=== PATIENT | female | born 1970 | race Caucasian/White ===

== ENCOUNTER → 2023-07-02 | Outpatient (CLI) | payer OTHER ==
[2023-07-02 17:58] LABS: INR 0.8 (<1.2); Partial Thromboplastin Time 24.7 sec (22.0-30.0); Prothrombin Time 9.6 sec (10.0-12.5)
[2023-07-03 02:56] LABS: HCT 42.2 % (37.2-46.3); HGB 13.4 g/dL (12.0-15.0); MCH 28.4 pg (27.0-32.0); MCHC 31.8 g/dL (32.0-37.0); MCV 89.4 FL (80.0-97.0); Mean Platelet Volume 9.4 FL (9.5-12.2); NRBC Per 100 WBC 0 X 10*3/uL (0.00-0.01); Platelet Count 248 X 10*3/uL (140-440); RBC 4.72 X 10*6/uL (4.10-5.20); RDW 14.4 % (11.5-14.5); WBC 7.62 X 10*3/uL (4.50-10.00)
[2023-07-03 03:38] LABS: BUN/Creat Ratio 27.29 Ratio (12.00-20.00); Blood Urea Nitrogen 19.1 mg/dL (9.0-27.0); Chloride 105 mmol/L (96-109); Glucose 137 mg/dL (70-110); Potassium 4.4 mmol/L (3.5-5.5); Sodium 142 mmol/L (135-145)
[2023-07-03 03:39] LABS: ALT 23 U/L (8-44); AST 16 U/L (13-35); Alkaline Phosphatase 96 U/L (41-126); Calcium 9.4 mg/dL (8.7-10.3); Carbon Dioxide 25.1 mmol/L (21.6-31.8); Globulin 2.5 g/dL (1.6-3.3); Total Bilirubin 0.6 mg/dL (0.3-1.2); Total Protein 6.5 g/dL (6.2-8.2)
[2023-07-03 04:09] LABS: Appearance,Urine Clear (Clear); Bacteria,Urine None Seen (None Seen); Bilirubin,Urine Negative (Negative); Blood,Urine Large (Negative); Color,Urine Yellow (Yellow); Ketones,Urine Trace (Negative); Nitrite,Urine Negative (Negative); PH, Urine 5.5; Specific Gravity,Urine >1.035 (1.001-1.030); Urobilinogen,Urine 0.2
== END | disposition home or self-care (01) ==
LOC: LABPAT 16:30
PROVIDERS: ATTEND Orthopaedic Surgery
DX: Z01.812 Encounter for preprocedural laboratory examination (principal); M16.11 Unilateral primary osteoarthritis, right hip
CPT/HCPCS: 80053; 81001; 83036; 85027; 85610; 85730; 86850; 86900; 86901; 87070

== ENCOUNTER 2023-07-11 05:53 | Day surgery (SDC) | payer OTHER ==
[2023-07-04 10:28] VITALS: BMI 39.2
[~2023-07-11 05:53] MED LIST: DEXAMETHASONE SOD PHOSPHATE 4 MG/ML 1 ML VIAL IV ONE; LIDOCAINE 1% (10MG/ML) FOR IV START INTRADERMA PRN; ONDANSETRON 4 MG/2 ML VIAL IVP ONE
[2023-07-11] MEDS ORDERED: oxyCODONE ER 10 MG TAB.ER.12H PO PRN (06:00)
[2023-07-11] MEDS ORDERED: TRANEXAMIC 1,000 MG/100ML-NACL 1,000 MG in SALINE 1 100ML.BAG IVPB PRN (06:00)
[2023-07-11] MEDS ORDERED: DOCUSATE 100 MG CAP PO PRN (06:00)
[2023-07-11] MEDS ORDERED: TRANEXAMIC 1,000 MG/100ML-NACL 1,000 MG in SALINE 1 100ML.BAG IV PRN (06:00)
[2023-07-11] MEDS ORDERED: DEXAMETHASONE SOD PHOSPHATE 10 MG/ML 1 ML VIAL IV PRN (06:00)
[2023-07-11] MEDS ORDERED: ACETAMINOPHEN TAB 500 MG TAB PO PRN (06:00)
[2023-07-11] MEDS ORDERED: ONDANSETRON 4 MG/2 ML VIAL IVP PRN ×2 (06:00→10:37)
[2023-07-11] MEDS ORDERED: KETOROLAC 15 MG/ML 1 ML VIAL IVP PRN (06:00)
[2023-07-11] MEDS ORDERED: FAMOTIDINE 20 MG/2 ML VIAL IVP PRN (06:00)
[2023-07-11] MEDS: LACTATED RINGERS 1,000 ML IV SCH ×2 (06:15→15:03)
[2023-07-11 06:50] LABS: Glucose,Whole Blood 125 mg/dL (70-110)
[2023-07-11] MEDS ORDERED: MIDAZOLAM 2 MG/2 ML VIAL IV PRN (07:00)
[2023-07-11] MEDS ORDERED: MIDAZOLAM 2 MG/2 ML VIAL IVP ONE (07:00)
[2023-07-11] MEDS ORDERED: HYDROmorphone 0.5 MG/0.5 ML SYRINGE IVP PRN (07:00)
--- NOTE | 2023-07-11 07:28 | P.ANPRN ---
Procedure Note - Anesthesia - Nerve Block Performed Right Silviano Single Time Out Performed: Yes Date of Procedure: 07/11/23 Procedure Start Time: 06:59 Procedure Stop Time: 07:05 Location of Patient: PreOp Indication: Acute Post-Operative Pain, Requested by Surgeon Sedation Type: Sedate with meaningful contact maintained Preparation: Sterile Prep Position: Supine Catheter: None Needle Types: Pajunk Needle Gauge: 21 Ultrasound used to visualize needle placement: Yes Ultrasound used to observe medication spread: Yes Injectate: 0.5% Ropivacaine (see comment for volume) (Ropiv 15 ml+NS 10ml) Blood Aspirated: No Pain Paresthesia on Injection Noted: No Resistance on Injection: Normal Image Stored and Saved: Yes Events: Uneventful and Well Tolerated
[2023-07-11] MEDS ORDERED: MIDAZOLAM 2 MG/2 ML VIAL ONE (07:29)
[2023-07-11] MEDS ORDERED: fentaNYL (PF) 50 MCG/ML 2 ML AMP ONE (07:29)
[2023-07-11] MEDS ORDERED: SODIUM CHLORIDE 0.9% (PF) 10 ML VIAL ONE (07:29)
[2023-07-11] MEDS ORDERED: PROPOFOL 10 MG/ML 20 ML VIAL IV ONE (07:29)
[2023-07-11] MEDS ORDERED: ROPIVACAINE 5 MG/ML 30 ML VIAL ONE (07:29)
[2023-07-11] MEDS ORDERED: SUCCINYLCHOLINE CHLORIDE 200 MG/10 ML VIAL IV ONE (07:29)
[2023-07-11] MEDS ORDERED: TRANEXAMIC 1,000 MG/100ML-NACL PREMIX BAG ONE (07:29)
[2023-07-11] MEDS ORDERED: LIDOCAINE 1% INJ 10MG/ML (20 ML MDV) ONE (07:29)
[2023-07-11] MEDS ORDERED: NEOSTIGMINE 1 MG/ML 10 ML VIAL ONE (07:29)
[2023-07-11] MEDS ORDERED: ROCURONIUM 10 MG/ML (5 ML VIAL) IV ONE (07:29)
[2023-07-11] MEDS ORDERED: HYDROmorphone (PF) 1 MG/ML ONE (07:29)
[2023-07-11] MEDS ORDERED: GLYCOPYRROLATE 0.2 MG/ML 2 ML VIAL ONE (07:29)
[2023-07-11] MEDS: ROPIVACAINE/EPI/CLONIDINE/KET 50 ML SYRINGE MISCELLANE PRN ×2 (08:36→09:38)
[2023-07-11] MEDS ORDERED: LACTATED RINGERS 1,000 ML IV ONE (09:11)
[2023-07-11] MEDS ORDERED: VANCOMYCIN 1,000 MG VIAL MISCELLANE ONE ×2 (09:28→09:34)
--- NOTE | 2023-07-11 10:07 | FL ---
Intraoperative/procedural fluoroscopic services were provided. Total fluoroscopy time is 55 seconds w ith a total of 8 submitted images to PACS. Please see the operative/procedural note for further detai ls. DAP: 3.4896 Gycm2
[2023-07-11] MEDS ORDERED: ONDANSETRON 4 MG/2 ML VIAL IVP ONE (10:35)
[2023-07-11] MEDS ORDERED: diazePAM 5 MG TAB PO PRN (10:37)
[2023-07-11] MEDS ORDERED: HYDROcodone/APAP 10-325MG 1 EACH TAB PO PRN (10:37)
[2023-07-11] MEDS ORDERED: MAGNESIUM HYDROXIDE 2,400 MG/30 ML CUP PO PRN (10:37)
[2023-07-11] MEDS ORDERED: NALOXONE 0.4 MG/ML 1 ML VIAL IV PRN (10:37)
[2023-07-11] MEDS ORDERED: hydrOXYzine pamoate 25 MG CAP PO PRN (10:37)
[2023-07-11] MEDS ORDERED: HYDROmorphone 1 MG/ML 1 ML SYRINGE IVP PRN (10:37)
--- NOTE | 2023-07-11 10:37 | P.OP ---
Date of Procedure: 07/11/23 Preoperative Diagnosis: 1. Severe right hip osteoarthritis 2. BMI 41.1 3. DMII with preoperative Hemoglobin A1c of 6.2 Postoperative Diagnosis: Same Procedure(s) Performed: 1. Right direct anterior total hip arthroplasty 2. Application of negative pressure incisional wound VAC right hip, < 50 cm, incision length measuring 15 cm Implants: 1. Franklin Trident II Acetabular Cup, Size #52 2. Juancarlos Insignia Size #4 Femoral Stem, High Offset 3. Biolox delta femoral head, 36 mm, - 5 neck Anesthesia: GETA, regional Surgeon: Sunil Fontana Estimated Blood Loss (ml): 200 IV fluids (ml): 1,000 Pathology: none sent Condition: stable Indications for Procedure: The patient is very pleasant 53-year-old female who presented to my office in May with severe right hip pain. She had x-rays showing severe hypertrophic osteoarthritis. She had failed a long course of nonsurgical treatment and it actually presented for a second opinion after being told she was not a surgical candidate due to her weight. Other than having a BMI of 41 she was relatively healthy with well-controlled diabetes and a hemoglobin A1c of 6.2. She had failed a lengthy course of nonsurgical treatment and was severely incapacitated by her hip pain. We both agreed to proceed with a total hip replacement. She understands that she is at a slightly higher risk of having a complication particularly delayed wound healing, superficial infection, and deep periprosthetic joint infection given her weight. We discussed measures to help lower these risks including use of an incisional wound VAC and suppressive antibiotics until her incision heals. I had a long discussion with the patient in the office on the potential risks and complications of an elective total hip replacement through a direct anterior approach. Risks discussed include, but are certainly not limited to, risks from anesthesia, superficial infection requiring local wound care or antibiotics, deep darcie-prosthetic joint infection and the treatment required to eradicate infection, intraoperative fracture, postoperative periprosthetic fracture, damage to local blood vessels or nerves particularly the lateral femoral cutaneous nerve, delayed wound healing requiring local wound care or possibly surgical debridement, hip dislocation, leg length discrepancy, soft tissue irritation around the total hip implant such as iliopsoas tendinitis or trochanteric bursitis, wear and osteolysis from the implants, squeaking or audible noises, groin pain, thigh pain, heterotopic ossification, stiffness, aseptic loosening of the implants, dissatisfaction with surgical outcome, need for revision surgery, DVT, PE, swelling of the operative extremity, acute coronary event, stroke, failure to thrive, and possibly loss of life or limb. The patient understands that while these are the most common complications after an elective hip replacement there are certainly other less common complications possible. They were given ample time to ask questions regarding the potential complications of a hip replacement. Following our discussion the patient provided their verbal and written consent to go forward with an elective total hip replacement. Operative Findings: Severe hypertrophic right hip osteoarthritis with large circumferential osteophytes around the acetabulum and a large osteophyte off of the anteroinferior femoral head and neck Description of Procedure: The patient was identified in the preoperative holding area and the correct hip was marked with my initials. I reviewed the procedure and consent with the patient. All of their questions were answered. The patient was then brought back into the operating room by anesthesia. While on the [facility] anesthesia was administered by the anesthesia team. Preoperative antibiotics and tranexamic acid were also given. After the patient was under anesthesia I examined their ankles to determine their preoperative leg length discrepancy. The skin over the anterior aspect of the hip was shaved to remove hair over the site of planned incision. Both feet and ankles were padded with webril and boots for the [place] were applied. The patient was then carefully transferred onto the [place] table. A perineal post was immediately placed. The arms were placed on arm holders and were well-padded. Both boots were secured to the spars on the [place] table. The patient was positioned so that the pelvis was centered over the post. Nonsterile drapes were applied. A timeout was performed identifying the correct patient, operative extremity, and procedure. At this point fluoroscopy was brought in to take preoperative images of the pelvis and operative hip. Using the standing AP pelvis from the office as a template, a comparable image was obtained with fluoroscopy. A metallic bar was used to create a bi-ischial line for use as a reference to leg length adjustments during the procedure. Global offset was also measured on both the operative and nonoperative leg. Fluoroscopy was then brought out and a pre-scrub using a chlorhexidine scrub brush was performed. The operative limb was then prepped and draped in the standard sterile fashion. An anterior longitudinal incision was made lateral and distal to the ASIS. The skin and subcutaneous tissues were incised sharply. The underlying tensor fascia was identified and incised in its midportion. The fascia was dissected free from the underlying muscle and the muscle belly was retracted. A blunt tipped cobra retractor was placed over the superior neck under the muscle fibers of the gluteus minimus. The deep enveloping fascia of the tensor was incised. The anterior leash of vessels were then identified and cauterized. The fascia between the rectus and the capsule was then incised and the pre-capsular fat was excised. A second Cobra was placed inferior to the neck. The interval between the rectus and iliocapsularis and the hip capsule was developed and a retractor was placed carefully over the anterior rim of the acetabulum. A T-shaped anterior capsulotomy was performed. The superior capsular leaflet was left in place in the inferior capsular flap was excised. The Cobra retractors were placed intracapsularly. We then made a femoral neck osteotomy according to preoperative and intraoperative templating and confirmed the level of the osteotomy using fluoroscopic imaging. The femoral head was removed, passed off to the back table, and sized. The superior capsular flap was excised. Retractors were placed circumferentially exposing the acetabulum. We then circumferentially debrided the acetabulum free of labrum and osteophytes. The pulvinar was removed to fully visualize the cotyloid fossa. We then sequentially reamed to achieve peripheral fit and excellent bleeding subchondral bone. The socket was thoroughly irrigated. The acetabular component was impacted into the appropriate position using fluoroscopy to guide version, inclination, and depth of insertion taking care to have a comparable image of the AP pelvis to the standing image taken in the office. An excellent press-fit was achieved and final position was confirmed using fluoroscopy. The press fit was augmented with bony cancellus dome screws. The liner was then impacted into the socket. Attention was then turned to the femur. The remnant dorsal lateral capsule was excised. The short external rotators were visible and protected. A bone hook was used to confirm appropriate translation of the trochanter away from the acetabulum. The leg was then extended and adducted and the bone hook was used to elevate the femur for broaching. A box osteotome and blunt tipped canal sound was then utilized to gain access to the femoral canal. We then sequentially broached the femur in appropriate anteversion until excellent torsional stability was achieved. The neck cut was brought flush to the trial broach with a calcar planar. A trial neck and head were then placed onto the broach and the hip was atraumatically reduced under direct visualization. External rotation to 90 was performed to assess stability. Fluoroscopy was brought in. An AP and lateral fluoroscopic image of the proximal femur was obtained to assess position and fill of the trial broach. An AP of the pelvis was then obtained and matched to the preoperative image taken. A bi-ischial bar was then placed and measurements were taken to assess changes in length and offset. The hip was then carefully dislocated, the proximal femur was exposed, and the trial implants were removed. The wound and proximal femur was thoroughly irrigated using sterile saline and pulsatile lavage. The final femoral implant was dispensed and gently tapped into place generating an excellent press-fit. The trunnion was cleansed and the final head was tapped into place to engage the Meng taper. The acetabulum was irrigated and visualized to be free of debris. The hip was carefully reduced. Stability was checked clinically with external rotation to 90 and there was no evidence of instability. Final fluoroscopic images were taken. The wound was then thoroughly irrigated and soaked with a dilute Betadine rinse for 3 minutes. 3 L of sterile saline was irrigated through the wound using pulsatile lavage. Local anesthetic cocktail was injected into the soft tissues around the surgical field. Due to the patient's body habitus and type 2 diabetes 2 g of vancomycin powder was placed deep at the level of the implant and the wound. The wound was then closed in layers including 3-0 nylon sutures in the skin to reinforce the subcuticular closure. Due to the patient's body habitus and diabetes an incisional wound VAC was placed over her closed incision. The incision measured 15 cm. The wound VAC was applied, hooked up to its canister, and with the wound VAC turndown there was excellent seal. The drapes were taken down and the patient was carefully transferred off of the [place] table. Following removal of the boots the leg lengths felt acceptable. The patient was then taken to recovery room having tolerated the procedure well. . PLAN: The patient can weight-bear as tolerated on the operative extremity. 2 doses of postoperative antibiotics and the patient will be discharged home on doxycycline 100 mg twice a day until her incision heals. DVT prophylaxis with aspirin 81 mg twice a day based on preoperative risk stratification. Physical therapy for gait training. Leave incisional wound VAC in place.
[2023-07-11 11:34] LABS: Glucose,Whole Blood 198 mg/dL (70-110)
[2023-07-11] MEDS: HYDROmorphone 0.5 MG/0.5 ML SYRINGE IVP PRN ×3 (13:45→21:47)
[2023-07-11] MEDS ORDERED: DEXTROSE 50% SYRINGE 50 ML IVP PRN ×2 (15:07)
[2023-07-11] MEDS: HYDROcodone/APAP 5-325MG 1 EACH TAB PO PRN ×2 (15:53→22:55)
[2023-07-11] MEDS: SODIUM CHLORIDE 0.9% 1,000 ML IV SCH ×2 (15:55→22:50)
[2023-07-11] MEDS ORDERED: FLUoxetine HCL 20 MG CAP PO SCH (17:00)
[2023-07-11 17:13] LABS: Glucose,Whole Blood 219 mg/dL (70-110)
[2023-07-11] MEDS: INSULIN ASPART (NovoLOG) 100 UNIT/ML VIAL SQ SCH ×2 (17:20→21:46)
--- NOTE | 2023-07-11 17:32 | P.CONS ---
History of Present Illness - Reason for Consult Consult date: 07/11/23 Requesting physician: Sunil Fontana - History of Present Illness History of Presenting Illness: Patient is a very pleasant 53-year-old female with a past medical history of hypertension, hyperlipidemia, hypothyroidism, GERD, glf-chtfnfs-bqyrygemc diabetes mellitus, and osteoarthritis.. She is currently admitted under orthopedic surgery team and status post elective right direct anterior total hip arthroplasty with application of incisional wound VAC completed by Dr. Fontana for severe right hip osteoarthritis. We have been consulted for medical management throughout patient's hospitalization. Patient seen and fully evaluated in room 459 shortly after returning from surgery. Patient currently reports mild to moderate postoperative pain to right hip otherwise denies any complaints including headache, lightheadedness, dizziness, chest pain, palpitations, shortness of breath, or experiencing any focal numbness/tingling/weakness. Patient reports postoperative pain is managed by current pain medication regimen. She reports urinating without any difficulties in postoperative period and denies having any postoperative nausea or vomiting and tolerating oral intake well. Review of systems: Pertinent positives and negatives as discussed in HPI, a complete review of systems was performed and all other systems are negative. Physical exam: Vital signs reviewed and stable. General: Nontoxic, no distress and appears stated age. Derm: Skin warm and dry, normal coloration for ethnicity. Head: Atraumatic, normocephalic and symmetric. Eyes: EOMs intact, no lid lag, and anicteric sclera Mouth: no lip lesions, mucus membranes moist Cardiovascular: regular rate and rhythm with normal S1S2, no murmur, positive posterior tibial pulses bilaterally, and cap refill < 2 seconds. Lungs: Respirations even, regular, and unlabored on room air. Lungs CTA bilaterally, no rhonchi, no rales, no wheezing, and no accessory muscle usage. Abdominal: soft, nontender to palpation, no guarding, no appreciable organomegaly Ext: No gross muscle atrophy, no edema, no contractures. Movement and sensation intact. Dressing clean dry and intact right lateral hip/thigh with incisional wound VAC present. Neuro: Speech clear, face symmetrical and CN II-XII grossly intact with no noted focal neuro deficits Psych: Alert and oriented to person, place, time, and situation. Appropriate and pleasant affect. Assessment and Plan of Care: Type II [id number] diabetes mellitus with hyperglycemia -Blood Glucose 219. Hold Metformin, Mounjaro, and Juardiance and placed patient on glycemic protocol with NovoLog sliding scale to maintain tight glycemic control throughout hospitalization and recovery period,. Hyperlipidemia -Continue daily medication regimen with atorvastatin 10 mg daily. Hypertriglyceridemia -Continue daily medication regimen with Icosapent ethyl 2 g twice daily. Hypothyroidism -Continue daily medication regimen with Levothyroxine 50 g each morning. GERD -PPI prophylaxis with Protonix 40 mg IVP daily. Osteoarthritis Status post right total hip arthroplasty with application of incisional wound VAC -Management per primary admitting orthopedic surgery team including DVT prophylaxis, postoperative dressing/wound/wound VAC management, pain management, weightbearing, and PT/OT. Orders place for CBC, BMP, and magnesium. Will follow-up on these postoperative labs and place additional orders as indicated based upon these findings. Vital signs reviewed and stable. Blood pressure 107/76, heart rate 102, and respiratory rate 18, with SpO2 of 94% on room air. Thank you for allowing us to participate in the care of this pleasant patient. Do not hesitate to contact us with questions. Someone can be reached from the [facility] all hours of the day at [phone] or via [employer]. Patient was seen independently by Nurse Practitioner. This document was prepared using [employer] dictation software. Please allow for errors in [employer] professor while rare they do occur. Steven Jalloh NP rendered care for this patient independently, reviewed the findings and plan as documented in the note above. I did not physically speak with or examine the patient on this date. Past Medical History Past Medical History: Diabetes Mellitus, Osteoarthritis (OA), Pneumonia, Thyroid Disorder Additional Past Medical History / Comment(s): hx kidney stones 2018 & 2019,pneumonia 2011 History of Any Multi-Drug Resistant Organisms: None Reported Past Surgical History: Cholecystectomy, Tonsillectomy Additional Past Surgical History / Comment(s): kidney stone procedures x3,hemilaminectomy c6-c7 Past Anesthesia/Blood Transfusion Reactions: No Reported Reaction Additional Past Anesthesia/Blood Transfusion Reaction / Comm: no hx blood transfusion. takes awhile to wake up w/ anesthesia Smoking Status: Never smoker - Past Family History Mother Family Medical History: No Reported History Brother(s) Family Medical History: Cancer Additional Family Medical History / Comment(s): brain Medications and Allergies Home Medications Medication Instructions Recorded Confirmed Type Atorvastatin [Lipitor] 10 mg PO DAILY 07/04/23 07/11/23 History Empagliflozin [Jardiance] 25 mg PO DAILY 07/04/23 07/11/23 History FLUoxetine HCL [PROzac] 40 mg PO DAILY@1700 07/04/23 07/11/23 History Levothyroxine Sodium [Synthroid] 50 mcg PO QAM 07/04/23 07/11/23 History Meloxicam [Mobic] 15 mg PO DAILY 07/04/23 07/11/23 History Tirzepatide [Mounjaro] 10 mg SQ LUO 07/04/23 07/11/23 History icosapent ethyL [Icosapent Ethyl] 2 gm PO BID 07/04/23 07/11/23 History metFORMIN HCL [Glucophage] 1,000 mg PO BID 07/04/23 07/11/23 History Aspirin 81 mg PO BID 30 Days #60 tab 07/11/23 Rx Diclofenac Sodium [Voltaren] 75 mg PO BID #60 tab 07/11/23 Rx Docusate [Colace] 100 mg PO BID #28 capsule 07/11/23 Rx Doxycycline Monohydrate 100 mg PO BID #30 cap 07/11/23 Rx HYDROcodone/APAP 5-325MG [Halliday 1 - 2 tab PO Q6HR PRN #32 tab 07/11/23 Rx 5-325] Omeprazole 40 mg PO DAILY #30 cap 07/11/23 Rx Allergies Allergy/AdvReac Type Severity Reaction Status Date / Time No Known Allergies Allergy Verified 07/11/23 06:23 Physical Exam Vitals: Vital Signs Temp Pulse Resp BP Pulse Ox 07/11/23 13:20 102 H 18 107/76 94 L 07/11/23 12:15 100 105/55 95 07/11/23 12:00 93 16 115/55 94 L 07/11/23 11:45 96 16 115/57 94 L 07/11/23 11:30 89 16 120/58 94 L 07/11/23 11:15 95 16 120/56 93 L 07/11/23 11:00 93 16 132/60 93 L 07/11/23 10:45 97 16 140/58 93 L 07/11/23 10:30 93 16 135/60 93 L 07/11/23 10:18 87.1 F L 98 18 140/72 93 L 07/11/23 06:25 97.6 F 79 18 134/76 99 Intake and Output 07/11/23 07/11/23 07/11/23 06:59 14:59 22:59 Intake Total 100 1800 Output Total 400 Balance 100 1400 Intake: IV 100 1800 Output: Urine 200 Estimated Blood Loss 200 Other: Weight 110.4 kg Results Labs: Abnormal Lab Results - Last 24 Hours (Table) 07/11/23 07/11/23 Range/Units 06:49 11:32 POC Glucose (mg/dL) 125 H 198 H (70-110) mg/dL
[2023-07-11 20:34] LABS: Glucose,Whole Blood 233 mg/dL (70-110)
[2023-07-11] MEDS ORDERED: SENNOSIDES-DOCUSATE SODIUM 1 EACH TAB PO SCH (21:00)
[2023-07-11] MEDS: ASPIRIN 81 MG PO SCH (21:46)
[2023-07-11] MEDS: NON FORMULARY DRUG (Icosapent Ethyl [Icosapent Ethyl] 1 GM Capsule) PO SCH (23:08)
[2023-07-12] MEDS: HYDROmorphone 0.5 MG/0.5 ML SYRINGE IVP PRN ×2 (02:04→06:00)
[2023-07-12 02:46] VITALS: RESP 17
[2023-07-12 05:55] LABS: Glucose,Whole Blood 141 mg/dL (70-110)
[2023-07-12] MEDS: INSULIN ASPART (NovoLOG) 100 UNIT/ML VIAL SQ SCH (05:56)
[2023-07-12] MEDS ORDERED: LEVOTHYROXINE 50 MCG TAB PO SCH (06:30)
--- NOTE | 2023-07-12 08:13 | P.PN ---
Subjective Progress Note Date: 07/12/23 Patient is doing well this morning. She has some mild discomfort in her right hip but is otherwise doing well. She's been up to the bathroom twice with a walker. She denies chest pain or shortness of breath this morning. Objective - Vital Signs Vital signs: Vital Signs Temp 98 F 07/12/23 01:48 Pulse 100 07/12/23 01:48 Resp 17 07/12/23 01:48 BP 101/68 07/12/23 01:48 Pulse Ox 91 L 07/12/23 01:48 FiO2 Intake & Output 07/11/23 07/12/23 07/12/23 18:59 06:59 18:59 Intake Total 1800 Output Total 400 Balance 1400 Weight 110.4 kg Intake: IV 1800 Output: Urine 200 Estimated Blood Loss 200 Other: # Voids 1 2 - Exam The patient is resting comfortably in her bed. She is alert and able to answer questions. A focused exam of the right lower extremity was conducted. On inspection there is an intact incisional wound VAC with good seal over the anterior aspect of the right hip. There is mild swelling in the thigh but it is soft and compressible. She has minimal pain with passive range of motion of the hip. Femoral nerve function is intact. She is able to actively plantarflex and dorsiflex her ankle and toes. - Labs Labs: Abnormal Lab Results - Last 24 Hours (Table) 07/11/23 07/11/23 07/11/23 Range/Units 11:32 17:11 20:27 POC Glucose (mg/dL) 198 H 219 H 233 H (70-110) mg/dL 07/12/23 Range/Units 05:53 POC Glucose (mg/dL) 141 H (70-110) mg/dL Assessment and Plan Assessment: Postoperative day #1 status post right direct anterior total hip arthroplasty, doing well Type 2 diabetes BMI 41.1 Plan: 1. Weightbearing as tolerated right lower extremity, up with assistance and a walker 2. DVT prophylaxis with aspirin 81 mg twice a day based on preoperative risk stratification 3. 2 doses postoperative antibiotics the IV followed by doxycycline 100 mg twice a day until her incision heals given her risk factors 4. Internal medicine for preoperative medical and diabetes management 5. Leave incisional wound VAC in place 6. Physical therapy for gait training 7. Dispo: Plan on discharge home later today after she passes physical therapy her pain is controlled on oral pain medications.
--- NOTE | 2023-07-12 08:15 | P.DS ---
Providers Date of admission: 07/11/2023 Attending physician: Sunil Fontana Consults: 07/11/23 10:37 Consult Physician Routine Consulting Provider: Ingrid Ivey Consult Reason/Comments: Diabetes management, post op Do you want consulting provider notified?: Yes Primary care physician: [place] [facility] Course: The patient is very pleasant 53-year-old female with a medical history significant for type 2 diabetes and severe right hip osteoarthritis was admitted under my care yesterday for an elective total hip replacement. Following, gait surgery she was transferred to the orthopedics floor in stable condition. She received 2 doses of IV antibiotics. She was transitioned from IV to oral pain medications. Internal medicine was consulted to manage her diabetes. She was seen on postoperative day #1 and was doing well with minimal pain. She worked with physical therapy and was ultimately cleared for discharge home. Plan - Discharge Summary Discharge Rx Participant: Yes New Discharge Prescriptions: New HYDROcodone/APAP 5-325MG [Law[place] 5-325] 1 - 2 tab PO Q6HR PRN #32 tab PRN Reason: Pain Diclofenac Sodium [Voltaren] 75 mg PO BID #60 tab Ondansetron [Zofran] 4 mg PO Q8HR PRN #20 tab PRN Reason: Nausea Aspirin 81 mg PO BID 30 Days #60 tab Docusate [Colace] 100 mg PO BID #28 capsule Omeprazole 40 mg PO DAILY #30 cap Doxycycline Monohydrate 100 mg PO BID #30 cap No Action Atorvastatin [Lipitor] 10 mg PO DAILY Tirzepatide [Mounjaro] 10 mg SQ LUO FLUoxetine HCL [PROzac] 40 mg PO DAILY@1700 Levothyroxine Sodium [Synthroid] 50 mcg PO QAM metFORMIN HCL [Glucophage] 1,000 mg PO BID icosapent ethyL [Icosapent Ethyl] 2 gm PO BID Meloxicam [Mobic] 15 mg PO DAILY Empagliflozin [Jardiance] 25 mg PO DAILY Discharge Medication List Atorvastatin [Lipitor] 10 mg PO DAILY 07/04/23 [History] Empagliflozin [Jardiance] 25 mg PO DAILY 07/04/23 [History] FLUoxetine HCL [PROzac] 40 mg PO DAILY@1700 07/04/23 [History] Levothyroxine Sodium [Synthroid] 50 mcg PO QAM 07/04/23 [History] Meloxicam [Mobic] 15 mg PO DAILY 07/04/23 [History] Tirzepatide [Mounjaro] 10 mg SQ LUO 07/04/23 [History] icosapent ethyL [Icosapent Ethyl] 2 gm PO BID 07/04/23 [History] metFORMIN HCL [Glucophage] 1,000 mg PO BID 07/04/23 [History] Aspirin 81 mg PO BID 30 Days #60 tab 07/11/23 [Rx] Diclofenac Sodium [Voltaren] 75 mg PO BID #60 tab 07/11/23 [Rx] Docusate [Colace] 100 mg PO BID #28 capsule 07/11/23 [Rx] Doxycycline Monohydrate 100 mg PO BID #30 cap 07/11/23 [Rx] HYDROcodone/APAP 5-325MG [[place] 5-325] 1 - 2 tab PO Q6HR PRN #32 tab 07/11/23 [Rx] Omeprazole 40 mg PO DAILY #30 cap 07/11/23 [Rx] Ondansetron [Zofran] 4 mg PO Q8HR PRN #20 tab 07/12/23 [Rx] Follow up Appointment(s)/Referral(s): Sunil Fontana MD [Medical Doctor] - 2 Weeks Activity/Diet/Wound Care/Special Instructions: 1. Weight-bear as tolerated on your operative extremity unless instructed otherwise. Use a walker or other assistive device to ambulate. 2. Leave surgical dressing in place. If your dressing becomes saturated with blood, there is drainage, or the dressing becomes loose please contact the office. 3. It is okay to shower with your surgical dressing, but do not submerge in water (no hot tubs, bath's, swimming etc.) 4. Make sure to take her blood clot prevention medication as prescribed (aspirin, Eliquis, Xarelto, and Plavix are commonly prescribed medications for blood clot prevention) 5. While taking Lawrence or Percocet for pain make sure you're taking a stool softener (Colace) and drink lots of water. 6. Keep all follow-up appointments as scheduled. You will usually be seen in 1-2 weeks following surgery. 7. Please contact the office with any questions or concerns [phone] Discharge Disposition: HOME SELF-CARE
[2023-07-12] MEDS: SODIUM CHLORIDE 0.9% 1,000 ML IV SCH (08:22)
[2023-07-12 08:36] VITALS: BP 98/66; PULSE 92; TEMP 98.7
[2023-07-12] MEDS ORDERED: ATORVASTATIN 10 MG TAB PO SCH (09:00)
[2023-07-12] MEDS ORDERED: PANTOPRAZOLE 40 MG/10 ML VIAL IVP SCH (09:00)
[2023-07-12] MEDS ORDERED: FAMOTIDINE 20 MG TAB PO SCH (09:00)
[2023-07-12] MEDS: ASPIRIN 81 MG PO SCH (09:33)
[2023-07-12] MEDS: NON FORMULARY DRUG (Icosapent Ethyl [Icosapent Ethyl] 1 GM Capsule) PO SCH (09:34)
[2023-07-12 09:35] LABS: Basophils # (A) 0.06 X 10*3/uL (0.00-0.10); Basophils % (A) 0.4 %; Eosinophils # (A) 0.01 X 10*3/uL (0.04-0.35); Eosinophils % (A) 0.1 %; HCT 37.4 % (37.2-46.3); HGB 11.6 g/dL (12.0-15.0); Lymphocytes # (A) 1.66 X 10*3/uL (0.90-5.00); Lymphocytes % (A) 10.6 %; MCH 28.2 pg (27.0-32.0); MCV 90.8 FL (80.0-97.0); Mean Platelet Volume 9.4 FL (9.5-12.2); Monocytes # (A) 0.79 X 10*3/uL (0.20-1.00); NRBC Per 100 WBC 0 X 10*3/uL (0.00-0.01); Neutrophils # (A) 13.13 X 10*3/uL (1.80-7.70); Neutrophils % (A) 83.6 %; Platelet Count 267 X 10*3/uL (140-440); RBC 4.12 X 10*6/uL (4.10-5.20); RDW 14.3 % (11.5-14.5)
[2023-07-12] MEDS: LACTATED RINGERS 1,000 ML IV SCH (10:02)
[2023-07-12] MEDS: HYDROcodone/APAP 5-325MG 1 EACH TAB PO PRN (10:36)
[2023-07-12 11:15] LABS: Blood Urea Nitrogen 18.9 mg/dL (9.0-27.0); Calcium 8.2 mg/dL (8.7-10.3); Carbon Dioxide 20.5 mmol/L (21.6-31.8); Chloride 105 mmol/L (96-109); Glucose 146 mg/dL (70-110); Magnesium 1.8 mg/dL (1.5-2.4); Potassium 4.6 mmol/L (3.5-5.5); Sodium 137 mmol/L (135-145)
--- NOTE | 2023-07-12 16:39 | P.PN ---
Subjective Progress Note Date: 07/12/23 History of Presenting Illness: Patient is a very pleasant 53-year-old female with a past medical history of hypertension, hyperlipidemia, hypothyroidism, GERD, zju-heabexh-denhawfvm roberto betes mellitus, and osteoarthritis.. She is currently admitted under orthopedic surgery team and status post elective right direct anterior total hip arthroplasty with application of incisional wound VAC completed by Dr. Fontana for severe right hip osteoarthritis. We have been consulted for medical management throughout patient's hospitalization. Physical exam: Patient seen at bedside this morning, she is postoperative day 1 and appears to be doing well. Patient reports she has been ambulating well with walker and reports controlled postoperative pain denying any complaints at this time. Vital signs reviewed and stable. General: Nontoxic, no distress and appears stated age. Derm: Skin warm and dry, normal coloration for ethnicity. Head: Atraumatic, normocephalic and symmetric. Eyes: EOMs intact, no lid lag, and anicteric sclera Mouth: no lip lesions, mucus membranes moist Cardiovascular: regular rate and rhythm with normal S1S2, no murmur, positive posterior tibial pulses bilaterally, and cap refill < 2 seconds. Lungs: Respirations even, regular, and unlabored on room air. Lungs CTA bilaterally, no rhonchi, no rales, no wheezing, and no accessory muscle usage. Abdominal: soft, nontender to palpation, no guarding, no appreciable organomegaly Ext: No gross muscle atrophy, no edema, no contractures. Movement and sensation intact. Dressing clean dry and intact right lateral hip/thigh with incisional wound VAC present. Neuro: Speech clear, face symmetrical and CN II-XII grossly intact with no noted focal neuro deficits Psych: Alert and oriented to person, place, time, and situation. Appropriate and pleasant affect. Assessment and Plan of Care: Postoperative blood lack anemia, stable and expected finding -Preoperative hemoglobin reviewed and was 13.4 and 07/02/23 postoperative hemoglobin drawn today resulting in 11.6. Postoperative blood loss anemia is a stable and expected finding. Patient has no active signs of bleeding and there is no need for transfusion, intervention, or further testing at this time. Type II [id number]-hpnsvvhbw diabetes mellitus with hyperglycemia -Blood Glucose 219. Recommend patient resume daily medication regimen with Metformin, Mounjaro, and Juardiance upon discharge. Hyperlipidemia -Continue daily medication regimen with atorvastatin 10 mg daily. Hypertriglyceridemia -Continue daily medication regimen with Icosapent ethyl 2 g twice daily. Hypothyroidism -Continue daily medication regimen with Levothyroxine 50 g each morning. GERD -PPI prophylaxis with Protonix 40 mg IVP daily. Osteoarthritis Status post right total hip arthroplasty with application of incisional wound VAC -Management per primary admitting orthopedic surgery team including DVT prophylaxis, postoperative dressing/wound/wound VAC management, pain management, weightbearing, and PT/OT. Data reviewed: Postoperative labs reviewed showing mild leukocytosis with WBC count of 15.70 believed to be reactive and stable postoperative blood loss anemia with hemoglobin of 11.6. BMP was unremarkable. Blood glucose 146. Magnesium normal findings at 1.8. Vital signs reviewed and stable. Blood pressure 98/66, heart rate 92, resp iratory rate 17, temp 98.7F, SpO2 of 94% on room air. Patient is medically optimized for discharge at this time once cleared by primary admitting orthopedic surgery team. Thank you for allowing us to participate in the care of this pleasant patient. Do not hesitate to contact us with questions. Someone can be reached from the [facility] hospitalist group all hours of the day at [phone] or via [employer]. Patient was seen independently by Nurse Practitioner. This document was prepared using [employer] dictation software. Please allow for errors in trapper animal while rare they do occur. Steven Jalloh NP rendered care for this patient independently, reviewed the findings and plan as documented in the note above. I did not physically speak with or examine the patient on this date. Objective - Vital Signs Vital signs: Vital Signs Temp 98 F 07/12/23 01:48 Pulse 100 07/12/23 01:48 Resp 17 07/12/23 01:48 BP 101/68 07/12/23 01:48 Pulse Ox 91 L 07/12/23 01:48 FiO2 Intake & Output 07/11/23 07/12/23 07/12/23 18:59 06:59 18:59 Intake Total 1800 Output Total 400 Balance 1400 Weight 110.4 kg Intake: IV 1800 Output: Urine 200 Estimated Blood Loss 200 Other: # Voids 1 2 - Labs CBC & Chem 7: 07/12/23 06:29 07/12/23 06:29 Labs: Abnormal Lab Results - Last 24 Hours (Table) 07/11/23 07/11/23 07/11/23 Range/Units 11:32 17:11 20:27 POC Glucose (mg/dL) 198 H 219 H 233 H (70-110) mg/dL 07/12/23 Range/Units 05:53 POC Glucose (mg/dL) 141 H (70-110) mg/dL
[2023-07-13] MEDS ORDERED: PANTOPRAZOLE 40 MG TABLET PO SCH (07:30)
== END 2023-07-12 11:19 | disposition home or self-care (01) ==
LOC: OR 05:53 → 4SSUR 10:18 → OR 07-12 11:19
PROVIDERS: ATTEND Orthopaedic Surgery
DX: M16.11 Unilateral primary osteoarthritis, right hip (principal); M25.751 Osteophyte, right hip; E11.9 Type 2 diabetes mellitus without complications; I10 Essential (primary) hypertension; E78.5 Hyperlipidemia, unspecified; E03.9 Hypothyroidism, unspecified; K21.9 Gastro-esophageal reflux disease without esophagitis; G89.18 Other acute postprocedural pain; E11.65 Type 2 diabetes mellitus with hyperglycemia; E78.1 Pure hyperglyceridemia; Z68.41 Body mass index [BMI] 40.0-44.9, adult; Z79.890 Hormone replacement therapy; Z79.899 Other long term (current) drug therapy; Z90.49 Acquired absence of other specified parts of digestive tract; Z90.89 Acquired absence of other organs; Z79.82 Long term (current) use of aspirin; Z79.84 Long term (current) use of oral hypoglycemic drugs
CPT/HCPCS: 27130; 64999; 97161; 80048; 83735; 85025; 83036; 73501; J2250; J3370; J1100; J0690; J2405; J3490; J1885; C9113; J1170 ×2; 64447; 81025

== ENCOUNTER 2023-08-27 16:27 | Emergency (ER) | payer OTHER ==
[2023-08-27] MEDS ORDERED: ONDANSETRON 4 MG/2 ML VIAL IVP STA (16:37)
[2023-08-27] MEDS ORDERED: HYDROmorphone 0.5 MG/0.5 ML SYRINGE IVP STA (16:37)
--- NOTE | 2023-08-27 16:38 | ED ---
Lower Extremity Injury HPI <Alfie Verde - Last Filed: 08/27/23 19:18> - General Source: patient, RN notes reviewed Mode of arrival: ambulatory Limitations: no limitations <Ciara Busby - Last Filed: 08/27/23 19:26> - General Stated Complaint: Hip Pain Time Seen by Provider: 08/27/23 16:33 - History of Present Illness Initial Comments: Patient is a 53-year-old female presented ER with chief complaint of right hip pain. Patient had a hip replaced on July [address] Fontana. Patient denies any complications until today. Patient states she was unpacking boxes from moving and she believes she hit it to the right and felt her right hip pop out of place. Patient is now endorsing extreme pain. Patient called EMS due to pain and unable to get up. Patient denies any head injury or loss of consciousness, other injuries. (Ciara Busby) - Related Data Home Medications Medication Instructions Recorded Confirmed Atorvastatin [Lipitor] 10 mg PO HS 07/04/23 08/27/23 Empagliflozin [Jardiance] 25 mg PO DAILY 07/04/23 08/27/23 FLUoxetine HCL [PROzac] 40 mg PO DAILY 07/04/23 08/27/23 Levothyroxine Sodium [Synthroid] 50 mcg PO DAILY 07/04/23 08/27/23 Tirzepatide [Mounjaro] 10 mg SQ LUO 07/04/23 08/27/23 icosapent ethyL [Icosapent Ethyl] 2 gm PO BID 07/04/23 08/27/23 metFORMIN HCL [Glucophage] 1,000 mg PO BID 07/04/23 08/27/23 Cyclobenzaprine [Flexeril] 5 mg PO TID PRN 08/27/23 08/27/23 HYDROcodone/APAP 7.5-325MG [[place] 1 tab PO Q6H PRN 08/27/23 08/27/23 7.5-325] polyethylene glycoL 3350 [Miralax] 17 gm PO DAILY PRN 08/27/23 08/27/23 Previous Rx's Medication Instructions Recorded Aspirin 81 mg PO BID 30 Days #60 tab 07/11/23 Diclofenac Sodium [Voltaren] 75 mg PO BID #60 tab 07/11/23 Doxycycline Monohydrate 100 mg PO BID #30 cap 07/11/23 Ondansetron [Zofran] 4 mg PO Q8HR PRN #20 tab 07/12/23 Allergies Allergy/AdvReac Type Severity Reaction Status Date / Time No Known Allergies Allergy Verified 08/27/23 18:16 Review of Systems ROS Other: All systems not noted in ROS Statement are negative. <Alfie Verde - Last Filed: 08/27/23 19:18> ROS Other: All systems not noted in ROS Statement are negative. <Ciara Busby - Last Filed: 08/27/23 19:26> ROS Statement: Those systems with pertinent positive or pertinent negative responses have been documented in the HPI. Past Medical History Past Medical History: No Reported History History of Any Multi-Drug Resistant Organisms: None Reported Past Surgical History: Cholecystectomy, Tonsillectomy Additional Past Surgical History / Comment(s): right hip. neck, Smoking Status: Never smoker Past Alcohol Use History: Rare Past Drug Use History: None Reported <Ciara Busby - Last Filed: 08/27/23 19:26> General Exam Limitations: no limitations General appearance: alert, other (Anxious and in pain) Head exam: Present: atraumatic, normocephalic, normal inspection Respiratory exam: Present: normal lung sounds bilaterally. Absent: respiratory distress, wheezes, rales, rhonchi, stridor Cardiovascular Exam: Present: regular rate, normal rhythm, normal heart sounds. Absent: systolic murmur, diastolic murmur, rubs, gallop, clicks Extremities exam: Present: other (Right leg is shortened and hit his internally rotated. Sensation intact. 2+ dorsalis pedis pulse.) Neurological exam: Present: alert, oriented X3, CN II-XII intact Psychiatric exam: Present: normal affect, normal mood Skin exam: Present: warm, dry, intact, normal color. Absent: rash <Ciara Busby - Last Filed: 08/27/23 19:26> Course Vital Signs 08/27/23 08/27/23 08/27/23 16:33 16:58 17:25 Temperature 98 F 98.4 F Pulse Rate 94 86 97 Respiratory 18 20 16 Rate Blood Pressure 151/92 149/95 137/92 O2 Sat by Pulse 96 98 96 Oximetry 08/27/23 08/27/23 08/27/23 17:30 17:35 17:40 Temperature Pulse Rate 107 H 86 97 Respiratory 16 16 18 Rate Blood Pressure 157/101 145/83 133/93 O2 Sat by Pulse 99 94 L 94 L Oximetry 08/27/23 08/27/23 08/27/23 17:45 17:50 17:55 Temperature Pulse Rate 98 98 103 H Respiratory 16 18 11 L Rate Blood Pressure 115/80 117/64 114/71 O2 Sat by Pulse 95 95 99 Oximetry 08/27/23 08/27/23 08/27/23 18:00 18:05 18:10 Temperature Pulse Rate 101 H 106 H 110 H Respiratory 20 16 16 Rate Blood Pressure 129/65 114/94 142/62 O2 Sat by Pulse 98 97 100 Oximetry 08/27/23 08/27/23 08/27/23 18:15 18:20 18:25 Temperature Pulse Rate 94 98 94 Respiratory 16 16 16 Rate Blood Pressure 132/73 137/82 130/78 O2 Sat by Pulse 99 98 99 Oximetry 08/27/23 08/27/23 08/27/23 18:30 18:35 18:40 Temperature Pulse Rate 93 90 91 Respiratory 16 17 17 Rate Blood Pressure 126/75 141/88 141/83 O2 Sat by Pulse 97 98 98 Oximetry 08/27/23 08/27/23 08/27/23 18:45 18:50 19:00 Temperature Pulse Rate 101 H 87 93 Respiratory 16 17 23 Rate Blood Pressure 145/92 141/83 141/83 O2 Sat by Pulse 96 98 97 Oximetry 08/27/23 19:10 Temperature Pulse Rate 90 Respiratory 17 Rate Blood Pressure 134/73 O2 Sat by Pulse 98 Oximetry Procedures - Procedural Sedation *Procedural Sedation Start Time: 17:25 *Procedural Sedation Stop Time: 18:00 *Risks,benefits, and alternative therapies discussed?: Yes *Patient indicates understanding of risk/benefit discussion?: Yes *Indications: fracture/dislocation reduction *Previous Adverse Reaction to Anesthesia/Sedation?: No * Testing Complete?: No Reason Test Not Complete:: Emergent Situation *ASA Class: II *Mallampati Airway Score: 1 *Time of Last PO Intake: 12:00 Preparation: monitoring coordinator applied, pulse oximeter, capnometry used, supplemental O2 applied, reversal agents at bedside, suction/airway equipment at bedside, IV secured Midazolam: IV Midazolam Dose: 2 IV Propofol Dose (mgs): 200 Complications: none Patient Tolerated Procedure: well <Alfie Verde - Last Filed: 08/27/23 19:18> - Orthopedic Joint Reduction Joint #1 Consent Obtained: verbal consent Side: right Joint Reduction Location: hip Analgesia: procedural sedation Technique Used: other (captain figueroa ) Post-Reduction Neuro Exam: intact Post-Reduction Vascular Exam: intact Post Reduction X-Ray Obtained: Yes Post Reduction X-Ray Results: reduced Splint Applied: No Patient Tolerated Procedure: well, no complications <Ciara Busby - Last Filed: 08/27/23 19:26> - Procedural Sedation Additional Comments: The patient require 2 doses of propofol 100 mg each the procedure was ultimately successful. Patient tolerated it well she is awake alert oriented 4 very conversant after coming out from the medications. (Alfie Verde) Medical Decision Making <Ciara Busby - Last Filed: 08/27/23 19:26> - Medical Decision Making Was pt. sent in by a medical professional or institution (, PA, CONVEYOR FEEDER, urgent care, hospital, or snf...) When possible be specific @ -[No] Did you speak to anyone other than the patient for history (EMS, parent, family, police, friend...)? What history was obtained from this source @ -[No] Did you review nursing and triage notes (agree or disagree)? Why? @ -[I reviewed and agree with nursing and triage notes] Were old charts reviewed (outside hosp., previous admission, EMS record, old EKG, old radiological studies, urgent care reports/EKG's, snf records)? Report findings @ -[No old charts were reviewed] Differential Diagnosis (chest pain, altered mental status, abdominal pain women, abdominal pain men, vaginal bleeding, weakness, fever, dyspnea, syncope, headache, dizziness, GI bleed, back pain, seizure, CVA, palpatations, mental health, musculoskeletal)? @ -[Differential Musculoskeletal: Muscular strain, contusion, ligament sprain, fracture, arthritis, septic arthritis, bursitis, cellulitis, muscle spasm, nerve compression, DVT, arterial occlusion, herpes zoster, electrolyte abnormality, tumor.... This is not meant to be in all inclusive list] EKG interpreted by me (3pts min.). @ -[None] X-rays interpreted by me (1pt min.). @ -[None done] CT interpreted by me (1pt min.). @ -[None done] U/S interpreted by me (1pt. min.). @ -[None done] What testing was considered but not performed or refused? (CT, X-rays, U/S, labs)? Why? @ -[None] What meds were considered but not given or refused? Why? @ -[None] Did you discuss the management of the patient with other professionals (pro fessionals i.e. , PA, CONVEYOR FEEDER, lab, RT, psych nurse, social sciences lecturer, secondary history teacher, teacher, youth officer, shelter case manager)? Give summary @ -[Yes, I discussed this care with Dr. Bragg from . He advised for the patient to follow-up with Dr. Fontana outpatient. He stated patient could walk on it and go home if she felt comfortable.] Was smoking cessation discussed for >3mins.? @ -[No] Was critical care preformed (if so, how long)? @ -[No] Were there social determinants of health that impacted care today? How? (Homelessness, low income, unemployed, alcoholism, drug addiction, transportation, low edu. Level, literacy, decrease access to med. care, penitentiary, rehab)? @ -[No] Was there de-escalation of care discussed even if they declined (Discuss DNR or withdrawal of care, Hospice)? DNR status @ -[No] What co-morbidities impacted this encounter? (DM, HTN, Smoking, COPD, CAD, Cancer, CVA, ARF, Chemo, Hep., AIDS, mental health diagnosis, sleep apnea, morbid obesity)? @ -[Obesity] Was patient admitted / discharged? Hospital course, mention meds given and route, prescriptions, significant lab abnormalities, going to OR and other pertinent info. @ -[Discharged. Patient is a ] Undiagnosed new problem with uncertain prognosis? @ -[No] Drug Therapy requiring intensive monitoring for toxicity (Heparin, Nitro, Insulin, Cardizem)? @ -[No] Were any procedures done? @ -[Yes] Diagnosis/symptom? @ -[Right hip dislocation] Acute, or Chronic, or Acute on Chronic? @ -[Acute] Uncomplicated (without systemic symptoms) or Complicated (systemic symptoms)? @ -[Uncomplicated] Side effects of treatment? @ -[No] Exacerbation, Progression, or Severe Exacerbation? @ -[No] Poses a threat to life or bodily function? How? (Chest pain, [place], [place], pneumonia, PE, COPD, DKA, ARF, appy, cholecystitis, CVA, Diverticulitis, Homicidal, Suicidal, threat to staff... and all critical care pts) @ -[No] (Ciara Busby) Disposition <Alfie Verde - Last Filed: 08/27/23 19:18> Is patient prescribed a controlled substance at d/c from ED?: No Time of Disposition: 19:26 <Ciara Busby - Last Filed: 08/27/23 19:26> Clinical Impression: Hip dislocation, left Disposition: HOME SELF-CARE Condition: Stable Instructions (If sedation given, give patient instructions): Moderate Sedation (ED), Hip Dislocation (ED) Additional Instructions: Wear knee immobilizer and use crutches for mobility. Remain toe-touch weightbearing. Be aware [place] can have sedative and addictive effects. Please follow-up with Dr. Fontana in office in one week. Please return to the ER for any new or worsening symptoms. Referrals: Jovi Herrera DO [Primary Care Provider] - 1-2 days Sunil Fontana MD [Medical Doctor] - 1-2 days
[2023-08-27] MEDS ORDERED: PROPOFOL 10 MG/ML 20 ML VIAL IV ONE ×3 (17:02→17:41)
[2023-08-27] MEDS ORDERED: HYDROmorphone 1 MG/ML 1 ML SYRINGE IVP STA (17:02)
--- NOTE | 2023-08-27 17:21 | XR ---
EXAMINATION TYPE: XR Hip Complete RT DATE OF EXAM: 08/27/2023 4:59 PM CLINICAL INDICATION:Female, 53 years old with history of pain; [facility] COMPARISON: None. TECHNIQUE: XR Hip Complete RT; hip was examined in the frontal and lateral projections and a AP pelvi s. FINDINGS: Right total hip arthroplasty with superior dislocation of the femoral component. No evidenc e for acute process, joint dislocation or significant soft tissue swelling. IMPRESSION: Superior displaced right femoral component of the right total hip arthroplasty. No evidence of fractu re.
[2023-08-27] MEDS ORDERED: MIDAZOLAM 1 MG/ML 5 ML VIAL IV STA (17:22)
--- NOTE | 2023-08-27 18:16 | XR ---
EXAMINATION TYPE: XR Hip Limited RT DATE OF EXAM: 08/27/2023 5:59 PM CLINICAL INDICATION:Female, 53 years old with history of post reduction; [facility] COMPARISON: Prereduction film.. TECHNIQUE: XR Hip Limited RT; hip was examined in the frontal and lateral projections and a AP pelvis . FINDINGS/IMPRESSION: Relocation of the right total hip arthroplasty femoral component. Given single technique. There is a lucency through the greater trochanter which could represent a periprosthetic fracture. Correlate wit h tenderness. Consider CT.
[2023-08-27] MEDS ORDERED: ACET/COD 300 MG/30 MG STARTER PACK 6 TAB BTL PO STA (19:22)
[2023-08-27 19:47] VITALS: BP 129/72; PULSE 86; RESP 16; TEMP 98.7
== END 2023-08-27 20:03 | disposition home or self-care (01) ==
LOC: EC 16:27
DX: S73.004A Unspecified dislocation of right hip, initial encounter (principal); W22.8XXA Striking against or struck by other objects, initial encounter
CPT/HCPCS: 73501; 73502; 27250; 99152; 99153; 99284; 96374; 96375; 96376; L1830; J2250; J1170 ×2; J2704